=== PATIENT | female | born 1955 | race Caucasian/White ===

== ENCOUNTER 2024-10-03 11:35 | Inpatient (IN) | payer MEDICARE, MEDICAID ==
[~2024-10-03] VITALS: Ht 170.2 cm; Wt 84.8 kg
[2024-10-03] MEDS: ACETAMINOPHEN 325 MG TABLET PO ONE (13:34)
[2024-10-03 13:37] LABS: BASOPHILS % (AUTO) 1.1 % (0.0-2.0); EOSINOPHILS % (AUTO) 0.7 % (1.0-6.0); HEMATOCRIT 39.7 % (36-46); LYMPHOCYTES # (AUTO) 0.9 K/uL (1.0-4.8); LYMPHOCYTES % (AUTO) 20.1 % (22.0-44.0); MEAN CORPUSCULAR HEMOGLOBIN 27.6 pg (26.0-34.0); MEAN CORPUSCULAR HGB CONC 32.6 G/dL (31.0-37.0); MEAN CORPUSCULAR VOLUME 85 fL (80-100); MONOCYTES # (AUTO) 0.3 K/uL (0.1-1.0); MONOCYTES % (AUTO) 6.1 % (2.0-9.0); NEUTROPHILS # (AUTO) 3.4 K/uL (1.8-7.7); PLATELET COUNT (AUTO) 253 K/uL (150-450); RED CELL DISTRIBUTION WIDTH 15.1 % (11.5-14.5); WHITE BLOOD COUNT (AUTO) 4.7 K/uL (4.5-11.0)
[2024-10-03] MEDS: SODIUM CHLORIDE 0.9% 1,000 ML IV ONE ×2 (13:40→21:15)
[2024-10-03 13:41] LABS: APPEARANCE,URINE HAZY (CLEAR); BILIRUBIN,URINE NEGATIVE (NEGATIVE); COLOR,URINE LIGHT YELLOW (YELLOW); GLUCOSE, URINE (UA) NEGATIVE (NEGATIVE); KETONES,URINE NEGATIVE (NEGATIVE); LEUKOCYTE ESTERASE ,URINE MODERATE (NEGATIVE); NITRATE,URINE POSITIVE (NEGATIVE); OCCULT BLOOD,URINE NEGATIVE (NEGATIVE); PH,URINE 5.5 (5.0-8.0); PROTEIN,URINE TRACE mg/dL (NEGATIVE); SPECIFIC GRAVITIY, URINE 1.015 (1.003-1.030); UROBILINOGEN,URINE <=1.0 mg/dL (<=1.0)
[2024-10-03 13:41] LABS: ANION GAP 6 mmol/L (8-16); CALCIUM, TOTAL 8.9 mg/dL (8.8-10.5); CARBON DIOXIDE 31 mmol/L (22-29); CHLORIDE 105 mmol/L (98-107); CREATININE 0.69 mg/dL (0.60-1.30); GLOMERULAR FILTR. RATE CALC > 60 mL/min (>60); GLUCOSE,RANDOM 119 mg/dL (70-110); POTASSIUM 4.6 mmol/L (3.5-5.1); SODIUM SERUM 142 mmol/L (136-145); UREA NITROGEN, BLOOD 11 mg/dL (7-18)
[2024-10-03 13:48] LABS: RBC,URINE 0-2 /HPF (0-2)
[2024-10-03 13:49] LABS: BACTERIA,URINE Many /HPF (None Seen); SQUAMOUS EPITHELIAL CELL,UR Many /LPF (None Seen)
[2024-10-03 13:51] LABS: TROPONIN I-HIGH SENSITIVITY 4 ng/L (<51)
[2024-10-03] MEDS: CefTRIAXone 1 GM/DEXTROSE 50 ML IV ONE (15:57)
[2024-10-03] MEDS ORDERED: MAGNESIUM HYDROXIDE SUSPENSION 30 ML UDCUP PO PRN (19:30)
[2024-10-03] MEDS ORDERED: BISACODYL 10 MG RECTAL RECTAL SUPPOSITORY PR PRN (19:30)
[2024-10-03] MEDS ORDERED: HYDROCODONE/ACETAMINOPHEN 5-325 MG TABLET PO PRN (19:30)
[2024-10-03] MEDS ORDERED: ONDANSETRON HCL 4 MG/2 ML VIAL IVP PRN (19:30)
[2024-10-03] MEDS ORDERED: ZOLPIDEM TARTRATE 5 MG TABLET PO PRN (19:30)
[2024-10-03] MEDS ORDERED: MORPHINE SULFATE 2 MG/ML SYRINGE IVP PRN (19:30)
[2024-10-03] MEDS: DOCUSATE SODIUM 100 MG CAPSULE PO SCH (21:00)
[2024-10-03 22:00] VITALS: BP 147/75; PULSE 58; RESP 18; TEMP 98.1; O2SAT 99
[2024-10-03] MEDS: ACETAMINOPHEN 325 MG TABLET PO PRN (22:57)
[2024-10-03] MEDS: HEPARIN SODIUM,PORCINE 5,000 UNITS/ML VIAL SQ SCH (23:46)
[2024-10-04] MEDS ORDERED: VENL-193 PO (04:08)
[2024-10-04 04:57] VITALS: BP 140/73; PULSE 59; RESP 19; TEMP 97.5; O2SAT 97
[2024-10-04 07:36] LABS: BASOPHILS % (AUTO) 0.9 % (0.0-2.0); EOSINOPHILS % (AUTO) 1.3 % (1.0-6.0); HEMATOCRIT 37.7 % (36-46); HEMOGLOBIN 12.5 g/dL (12.0-16.0); LYMPHOCYTES # (AUTO) 1.9 K/uL (1.0-4.8); LYMPHOCYTES % (AUTO) 36.4 % (22.0-44.0); MEAN CORPUSCULAR HEMOGLOBIN 27.8 pg (26.0-34.0); MEAN CORPUSCULAR HGB CONC 33.1 G/dL (31.0-37.0); MEAN CORPUSCULAR VOLUME 84 fL (80-100); MONOCYTES # (AUTO) 0.3 K/uL (0.1-1.0); MONOCYTES % (AUTO) 5.3 % (2.0-9.0); NEUTROPHILS # (AUTO) 2.9 K/uL (1.8-7.7); NEUTROPHILS % (AUTO) 56.1 % (40.0-70.0); PLATELET COUNT (AUTO) 244 K/uL (150-450); RED BLOOD CELL COUNT(AUTO) 4.49 MIL/uL (4.00-5.20); RED CELL DISTRIBUTION WIDTH 15.2 % (11.5-14.5); WHITE BLOOD COUNT (AUTO) 5.2 K/uL (4.5-11.0)
[2024-10-04 07:40] LABS: ANION GAP 4 mmol/L (8-16); CALCIUM, TOTAL 8.6 mg/dL (8.8-10.5); CARBON DIOXIDE 31 mmol/L (22-29); CHLORIDE 109 mmol/L (98-107); GLOMERULAR FILTR. RATE CALC > 60 mL/min (>60); GLUCOSE,RANDOM 110 mg/dL (70-110); POTASSIUM 3.4 mmol/L (3.5-5.1); SODIUM SERUM 144 mmol/L (136-145); UREA NITROGEN, BLOOD 8 mg/dL (7-18)
[2024-10-04 08:06] VITALS: BP 149/76; PULSE 57; RESP 20; TEMP 97.9; O2SAT 97
[2024-10-04] MEDS: VENLAFAXINE HCL 75 MG ER CAPSULE PO SCH (08:36)
[2024-10-04] MEDS: PANTOPRAZOLE SODIUM 40 MG DR TABLET PO SCH (08:36)
[2024-10-04] MEDS: CefTRIAXone 1 GM/DEXTROSE 50 ML IV SCH (16:31)
[2024-10-04 17:09] VITALS: BP 126/83; PULSE 60; RESP 20; TEMP 98.1; O2SAT 98
[2024-10-04 20:06] VITALS: BP 119/68; PULSE 62; RESP 18; TEMP 98.4; O2SAT 99
[2024-10-05 04:43] VITALS: BP 127/74; PULSE 70; RESP 19; TEMP 97.9; O2SAT 96
[2024-10-05 08:18] VITALS: BP 146/78; PULSE 70; RESP 18; TEMP 98.2; O2SAT 97
[2024-10-05] MEDS ORDERED: GADOTERATE MEGLUMINE 10 MMOL/20 ML VIAL IVP ONE (14:55)
[2024-10-05 15:30] VITALS: BP 117/68; PULSE 68; RESP 18; TEMP 98.2; O2SAT 96
[2024-10-05 19:57] VITALS: BP 134/75; PULSE 68; RESP 18; TEMP 98.1; O2SAT 97
[2024-10-05] MEDS: SUMAtriptan SUCCINATE 25 MG TABLET PO PRN (20:40)
[2024-10-06 05:15] VITALS: BP 131/87; PULSE 74; RESP 18; TEMP 97.6; O2SAT 97
[2024-10-06 07:20] LABS: BASOPHILS % (AUTO) 0.3 % (0.0-2.0); EOSINOPHILS % (AUTO) 1.9 % (1.0-6.0); HEMATOCRIT 39.5 % (36-46); HEMOGLOBIN 12.9 g/dL (12.0-16.0); MEAN CORPUSCULAR HEMOGLOBIN 27.5 pg (26.0-34.0); MEAN CORPUSCULAR HGB CONC 32.6 G/dL (31.0-37.0); MEAN CORPUSCULAR VOLUME 85 fL (80-100); MONOCYTES # (AUTO) 0.3 K/uL (0.1-1.0); MONOCYTES % (AUTO) 6.7 % (2.0-9.0); NEUTROPHILS # (AUTO) 2.3 K/uL (1.8-7.7); NEUTROPHILS % (AUTO) 48.1 % (40.0-70.0); PLATELET COUNT (AUTO) 256 K/uL (150-450); RED BLOOD CELL COUNT(AUTO) 4.67 MIL/uL (4.00-5.20); RED CELL DISTRIBUTION WIDTH 15.3 % (11.5-14.5); WHITE BLOOD COUNT (AUTO) 4.8 K/uL (4.5-11.0)
[2024-10-06 07:31] LABS: ANION GAP 5 mmol/L (8-16); CALCIUM, TOTAL 8.7 mg/dL (8.8-10.5); CARBON DIOXIDE 31 mmol/L (22-29); CHLORIDE 109 mmol/L (98-107); CREATININE 0.66 mg/dL (0.60-1.30); GLOMERULAR FILTR. RATE CALC > 60 mL/min (>60); GLUCOSE,RANDOM 101 mg/dL (70-110); POTASSIUM 4.1 mmol/L (3.5-5.1); SODIUM SERUM 145 mmol/L (136-145); UREA NITROGEN, BLOOD 6 mg/dL (7-18)
[2024-10-06 08:03] VITALS: BP 145/92; PULSE 67; RESP 18; TEMP 97.9; O2SAT 98
[2024-10-06] MEDS ORDERED: MECL-226 PO (14:00)
[2024-10-06] MEDS ORDERED: CEPH-558 PO (14:00)
[2024-10-06] MEDS ORDERED: SUMA25TA15 PO (14:01)
[2024-10-06 16:38] VITALS: BP 126/77; PULSE 66; RESP 18; TEMP 98.1; O2SAT 96
[2024-10-06] MEDS: MECLIZINE HCL 12.5 MG TABLET PO PRN (17:42)
== END 2024-10-06 17:55 | disposition home or self-care (01) | DRG 74 ==
LOC: EMS 11:40 → EDH 16:49 → 4E 21:25
PROVIDERS: ADMIT Internal Medicine; ATTEND Internal Medicine
DX: G90.89 Other disorders of autonomic nervous system (principal); N39.0 Urinary tract infection, site not specified; G43.909 Migraine, unspecified, not intractable, without status migrainosus; H81.10 Benign paroxysmal vertigo, unspecified ear; F32.A Depression, unspecified; E86.0 Dehydration; R73.9 Hyperglycemia, unspecified; E87.6 Hypokalemia; E66.3 Overweight; Z90.710 Acquired absence of both cervix and uterus; Z68.29 Body mass index [BMI] 29.0-29.9, adult
CPT/HCPCS: 70450; 70553; 71045; 80048; 81001; 83036; 83880; 84484; 85025; 87040; 87077; 87086; 87186; 93005; 97116; 97161; 97530; 99285; G0378; J0696; J1644; J7030; 36415-L1; 36415-TC